=== PATIENT | female | born 1995 | race Native Hawaiian/Other Pacific Islander ===

== ENCOUNTER 2020-06-09 10:07 | Outpatient (CLI) | payer OTHER | END 2020-06-09 19:50 | disposition home or self-care (01) | LOC: INF 10:07 | PROVIDERS: ATTEND Internal Medicine | DX: Z23 Encounter for immunization (principal) | CPT/HCPCS: 96372 ==

== ENCOUNTER 2020-07-07 14:54 | Outpatient (CLI) | payer OTHER | END 2020-07-07 21:33 | disposition home or self-care (01) | LOC: INF 14:54 | PROVIDERS: ATTEND Internal Medicine | DX: Z23 Encounter for immunization (principal) | CPT/HCPCS: 96372 ==